=== PATIENT | male | born 1945 | race Caucasian/White ===

== ENCOUNTER 2016-12-14 12:34 | Emergency (ER) | payer MEDICARE ==
[~2016-12-14] VITALS: Ht 165.1 cm; Wt 90.0 kg
[2016-12-14] MEDS ORDERED: [UNRECOGNIZED DRUG - SUPPLY] (13:28)
[2016-12-14] MEDS ORDERED: BP MED (13:28)
[2016-12-14] MEDS ORDERED: ASPIRIN81 MG PO (13:29)
[2016-12-14] MEDS ORDERED: ONE DAIL1 PO (13:30)
[2016-12-14] MEDS ORDERED: KEFLEX500 MG PO (14:32)
[2016-12-14] MEDS ORDERED: CLEOCIN300 MG PO (14:50)
[2016-12-14 14:53] VITALS: BP 132/81
== END 2016-12-14 14:53 | disposition home or self-care (01) | DRG 605 ==
LOC: ED 12:34
PROC: 0HQLXZZ Repair Left Lower Leg Skin, External Approach (ICD-10-PCS; principal; 2016-12-14)
DX: S81.012A Laceration without foreign body, left knee, initial encounter (principal); W31.2XXA Contact with powered woodworking and forming machines, initial encounter; Y93.89 Activity, other specified; Y92.007 Garden or yard of unspecified non-institutional (private) residence as the place of occurrence of the external cause